=== PATIENT | male | born 1960 | race Caucasian/White ===

== ENCOUNTER 2016-08-01 12:21 | Emergency (ER) | payer OTHER ==
[~2016-08-01] VITALS: Ht 175.3 cm; Wt 68.0 kg
--- NOTE | 2016-08-01 12:33 | ED AMS/SEIZURE/WEAK/DIZZY ---
History of Present Illness General Chief Complaint: Dizziness Stated Complaint: DIZZINESS Source: patient Exam Limitations: no limitations Vital Signs & Intake/Output Vital Signs & Intake/Output Vital Signs Date Time Temp Pulse Resp B/P Pulse O2 O2 Flow FiO2 Ox Delivery Rate 08/01 1553 97.7 87 18 135/92 98 08/01 1441 98.4 74 20 150/84 100 Room Air 08/01 1407 74 139/83 08/01 1304 98 Room Air 08/01 1224 98.9 81 18 167/91 98 Room Air Allergies Coded Allergies: No Known Allergies (08/01/16) Reconcile Medications No Known Home Medications Triage Note: PT STATES HE HAS BEEN FEELING DIZZY AND HIS CHEST FEELS HEAVY X 1 WEEK. PT STATES HE DOES HAVE SOB DENIES DIAPHORESIS Triage Nurses Notes Reviewed? yes Onset: Gradual Duration: week(s): (2), waxing and waning Timing: recent history Injury Environment: work Severity: moderate Modifying Factors: Worsens With: other (EXERTION). Associated Symptoms: DYSPNEA, CHEST TIGHTNESS HPI: This is a 56-year-old male who presents to the ER from home for chief complaint of dizziness after exerting himself in the gym. He also complains of some chest discomfort ON/OFF FOR THE PAST TWO WEEKS. He usually goes to the gym 3 times a week and works out without difficulties. Now he staets that he gets short of breath with exertion or when climbing the stairs. No personal history of DM, HTN or high cholesterol. Positive family history in his father. No tobacco history. Past History Travel History Traveled to [place] past 21 day No Medical History Any Pertinent Medical History? 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 Yes Review of Systems Review of Systems Constitutional: Denies: chills, fever. EENTM: Reports: no symptoms. Respiratory: Reports: short of breath. Denies: cough, sputum production. Cardiovascular: Reports: chest pain, peripheral edema. GI: Denies: abdominal pain. Genitourinary: Reports: no symptoms. Musculoskeletal: Reports: no symptoms. Skin: Reports: no symptoms. Neurological/Psychological: Reports: no symptoms. Hematologic/Endocrine: Denies: bruising, bleeding, polyuria, polydipsia. Immunologic/Allergic: Denies: splenectomy. All Other Systems: Reviewed and Negative Physical Exam Physical Exam General Appearance: well developed/nourished, alert, awake Head: atraumatic, normal appearance Eyes: Bilateral: normal appearance, PERRL, EOMI. Ears, Nose, Throat: normal pharynx, hearing grossly normal Neck: normal inspection, supple, full range of motion Respiratory: normal breath sounds, chest non-tender, no respiratory distress Cardiovascular: regular rate/rhythm Peripheral Pulses: 2+ radial (R), 2+ radial (L) Gastrointestinal: normal bowel sounds, soft, non-tender Extremities: normal range of motion Neurologic/Psych: no motor/sensory deficits, awake, alert, oriented x 3, normal gait Skin: intact, normal color, warm/dry Core Measures ACS in differential dx? Yes ASA ordered for poss ACS? Yes-ordered CVA/TIA Diagnosis: No Severe Sepsis Present: No Septic Shock Present: No Progress Differential Diagnosis: AMI, PE, UNSTABLE ANGINA, PNA, PTX Plan of Care: Orders Procedure Date/time Status Heart Healthy Diet 08/01 D Active TROPONIN LEVEL 08/01 1630 Complete EKG 08/01 1630 Active Add-on Test (ER Only) 08/01 1355 Active MISTAKE 08/01 1354 Active Telemetry/Clinical Team Manager 08/01 1305 Active CREATINE PHOSPHOKINASE 08/01 1300 Complete TROPONIN LEVEL 08/01 1253 Complete PARTIAL THROMBOPLASTIN TIME 08/01 1253 Complete PROTHROMBIN TIME 08/01 1253 Complete D-DIMER 08/01 1253 Complete COMPREHENSIVE METABOLIC PANEL 08/01 1253 Complete CBC WITHOUT DIFFERENTIAL 08/01 1253 Complete B-TYPE NATRIURETIC PEP (BNP) 08/01 1253 Complete EKG 08/01 1225 Active Laboratory Tests 08/01/16 1640: Troponin I < 0.01 08/01/16 1300: Anion Gap 12, Estimated GFR > 60, BUN/Creatinine Ratio 27.8 H, Glucose 104 H, Calcium 9.2, Total Bilirubin 1.1, AST 29, ALT 31, Alkaline Phosphatase 67, Creatine Kinase 168, Troponin I < 0.01, Tsc-[place] Pept 33.1, Total Protein 7.1, Albumin 4.3, Globulin 2.8, Albumin/Globulin Ratio 1.5, PT 11.2, INR 1.07, APTT 28, D-Dimer 212, CBC w Diff NO MAN DIFF REQ, RBC 4.64 L, MCV 89.4, MCH 30.4, RDW 12.9, MPV 8.3, Gran % 66.4, Lymphocytes % 20.2 L, Monocytes % 10.5 H, Eosinophils % 2.4, Basophils % 0.5, Absolute Granulocytes 2.8, Absolute Lymphocytes 0.9 L, Absolute Monocytes 0.4, Absolute Eosinophils 0.1, Absolute Basophils 0, PUBS MCHC 34.0 EKG, TELE MONITOR, LABS, DIDIMER, ASPIRIN ORDERED. TROPONIN NEGATIVE. CHEST ANIOGRAM ORDERED. 3:[address] angios negative for PE. Patient will remain for a repeat troponin and EKG at 4:30. Currently chest pain-free. PAIN FREE ON DISCHARGE. TROPONIN IS NEGATIVE X 2. HE WILL FOLLOW UP FOR OUTPATIENT CARDIOLOGY WORKUP. (MICHELE ALMAZAN,PAMELA) Diagnostic Imaging: Viewed by Me: CT Scan. Discussed w/RAD: CT Scan. Radiology Impression: PATIENT: MARQUIS GILLIAM JR PRESENT AGE: 56 PATIENT ACCOUNT NO: [id number] : 58 LOCATION: [facility] ORDERING PHYSICIAN: PAMELA BAUTISTA MD SERVICE DATE: 08/01/16 EXAM TYPE: CAT - CTA CHEST-PULMONARY EMBOLISM EXAMINATION: CT ANGIOGRAM OF THE CHEST WITH AND WITHOUT CONTRAST (CT PULMONARY ANGIOGRAM FOR PE) CLINICAL INFORMATION: Chest pain. Shortness of breath was exertion. Palpitations. COMPARISON: No pertinent prior studies are available for comparison. TECHNIQUE: Prior to contrast administration, noncontrast localization images were obtained. Subsequently, multidetector volumetric imaging was performed from the thoracic inlet to below the diaphragms following the administration of 80 mL Omnipaque 350 intravenous contrast. No contrast reaction reported Sagittal, coronal, and MIP oblique sagittal reformatted images were obtained on the CT workstation, uploaded to PACS, and reviewed. Total exam dose-length product 353 mGy-cm FINDINGS: Outpatient Interviewing Clerk view is negative. QUALITY OF STUDY/CONTRAST BOLUS: Satisfactory. PULMONARY ARTERIES: No central or segmental pulmonary emboli. THORACIC AORTA: No aneurysm or dissection. LUNG: No focal consolidation, nodules or masses. PLEURA: No pleural effusion or pneumothorax. MEDIASTINUM: Normal heart size. No pericardial effusion. No hilar or mediastinal lymphadenopathy. No evidence of septal bowing or right heart strain. CHEST WALL/AXILLA: Small benign-appearing lymph nodes are seen in both axillae. OSSEOUS STRUCTURES: No acute or suspicious osseous abnormality. Incidental segmentation is seen involving the lower third of the sternum. UPPER ABDOMEN: Unremarkable. No reflux of contrast into the hepatic veins to suggest elevated right heart pressures. IMPRESSION: Normal exam. No evidence of pulmonary embolism. VTE: negative DICTATED BY: STAR LEACH MD DATE/TIME DICTATED:08/01/161443 TURN OUT WORKER:DESTINY DATE/ TIME TRANSCRIBED:08/01/161443 CONFIDENTIAL, DO NOT COPY WITHOUT APPROPRIATE AUTHORIZATION. <Electronically signed in Other Vendor System> SIGNED BY: STAR LEACH MD 08/01/16 1500 Initial ED EKG: NSR Repeat EKG: unchanged Rhythm Strip: normal sinus rhythm Departure Departure Time of Disposition: 1755 Disposition: HOME OR SELF CARE Condition: Stable Clinical Impression Primary Impression: Dyspnea on exertion Referrals: AURA ALMAZAN,MOSES Prince (PCP/Family) SVITLANA ALMAZAN,JOHNNA Kenney Additional Instructions: Follow-up with your doctor in the office as well as the tool polishing machine operator listed. Return to the ER for any changing or worsening symptoms. No physical exertion as we discussed until you are cleared by cardiology to do so. Departure Forms: Customer Survey General Discharge Information Prescriptions: Current Visit Scripts No Known Home Medications
[2016-08-01 13:09] LABS: ABSOLUTE BASOPHIL COUNT 0 /CUMM (0.0-0.2); ABSOLUTE EOSINOPHIL COUNT 0.1 /CUMM (0.0-0.7); ABSOLUTE GRANULOCYTE CT 2.8 /CUMM (1.4-6.5); ABSOLUTE LYMPH COUNT 0.9 /CUMM (1.2-3.4); ABSOLUTE MONOCYTE COUNT 0.4 /CUMM (0.10-0.60); BASOPHIL % 0.5 % (0.0-2.0); EOSINOPHIL % 2.4 % (0-5); GRANULOCYTE % 66.4 % (42.2-75.2); HEMATOCRIT 41.5 % (42-52); MEAN CORPUSCULAR HGB 30.4 PG (27.0-31.0); MEAN CORPUSCULAR VOLUME 89.4 FL (80.0-94.0); MEAN PLATELET VOLUME 8.3 FL (7.4-10.4); PLATELET COUNT 210 /CUMM (130-400); RBC DISTRIBUTION WIDTH 12.9 % (11.5-14.5); RED BLOOD CELL CT 4.64 /CUMM (4.70-6.10); WHITE BLOOD CELL COUNT 4.2 /CUMM (4.8-10.8)
[2016-08-01 13:21] LABS: PT 11.2 SEC (9.4-12.5); PTT 28 SEC (25-37)
--- NOTE | 2016-08-01 15:00 | CT SCAN REPORT ---
EXAMINATION: CT ANGIOGRAM OF THE CHEST WITH AND WITHOUT CONTRAST (CT PULMONARY ANGIOGRAM FOR PE) CLINICAL INFORMATION: Chest pain. Shortness of breath was exertion. Palpitations. COMPARISON: No pertinent prior studies are available for comparison. TECHNIQUE: Prior to contrast administration, noncontrast localization images were obtained. Subsequently, multidetector volumetric imaging was performed from the thoracic inlet to below the diaphragms following the administration of 80 mL Omnipaque 350 intravenous contrast. No contrast reaction reported Sagittal, coronal, and MIP oblique sagittal reformatted images were obtained on the CT workstation, uploaded to PACS, and reviewed. Total exam dose-length product 353 mGy-cm FINDINGS: Senior Managing Director view is negative. QUALITY OF STUDY/CONTRAST BOLUS: Satisfactory. PULMONARY ARTERIES: No central or segmental pulmonary emboli. THORACIC AORTA: No aneurysm or dissection. LUNG: No focal consolidation, nodules or masses. PLEURA: No pleural effusion or pneumothorax. MEDIASTINUM: Normal heart size. No pericardial effusion. No hilar or mediastinal lymphadenopathy. No evidence of septal bowing or right heart strain. CHEST WALL/AXILLA: Small benign-appearing lymph nodes are seen in both axillae. OSSEOUS STRUCTURES: No acute or suspicious osseous abnormality. Incidental segmentation is seen involving the lower third of the sternum. UPPER ABDOMEN: Unremarkable. No reflux of contrast into the hepatic veins to suggest elevated right heart pressures. IMPRESSION: Normal exam. No evidence of pulmonary embolism. VTE: negative
[2016-08-01 15:53] VITALS: BP 135/92
== END 2016-08-01 18:01 ==
LOC: ERH 12:21
PROVIDERS: Emergency Medicine
DX: R06.00 Dyspnea, unspecified (principal); R07.89 Other chest pain
CPT/HCPCS: 93005; 93010